=== PATIENT | female | born 1940 | race Caucasian/White ===

== ENCOUNTER → 2016-09-07 | Outpatient (CLI) | payer MEDICARE ==
[~2016-09-07] MED LIST: AMLO5TAB4 PO; ASP81TEC PO; CEFU500T5 PO; CLOP75TA PO; CLOP75TA28 PO; DICY20TA33 PO; GLIP10TA13 PO; LISI1TAB10 PO; LOSA50TA6 PO; LOVA10TA PO; LOVA20TA2 PO; LOVA40TA2; LOVA40TA2 PO; MAGN400C PO; MAGNESIUM W/ZINC PO; MELA10TA7 PO; METF-380 PO; METO-272 PO; MPR22T; MTF500T PO; MULT-974 PO; OMEG-12 PO; OXYB5TAB PO; OXYB5TAB9 PO; OXYC-12 PO; PNT40TEC PO; SERT50TA9 PO; SOLI5TAB4 PO; TRAM-42 PO
--- NOTE | 2016-09-07 12:01 | Diagnostic Imaging Report ---
PROCEDURE: CT abdomen without contrast. TECHNIQUE: Multiple contiguous axial images were obtained through the abdomen without the use of intravenous contrast. INDICATION: Upper abdominal pain. FINDINGS: The lung bases are clear. The distal esophagus is slightly dilated with mucosal wall thickening, may relate to esophagitis. There is a gastric band seen at the gastroesophageal junction. There is prominent distention of the distal stomach with ingested material without evidence of obstruction. The visualized portions of the small and large bowel loops and the appendix within the abdomen demonstrate no abnormal dilatation. Slightly prominent amount of luminal fluid, however, is seen in the jejunum. In the appropriate clinical setting, this may correlate with the enteritis. The kidneys demonstrate no hydronephrosis. There is a low-attenuation lesion in the mid right kidney measuring 1.4 cm, likely representing a cyst. Prominent atherosclerotic calcification of the abdominal aorta. No para-aortic significantly enlarged lymph node is noted. No significant free fluid or fluid collection in the abdomen is seen. The liver, the spleen, and adrenal glands appear unremarkable. The gallbladder is not seen, presumably surgically removed. The CBD is slightly dilated at 1.6 cm in caliber with no significant intrahepatic biliary dilatation identified. If the patient has the clinical signs of obstructive cholestasis, MRCP evaluation could be helpful. The pancreas appear unremarkable for an unenhanced exam. There is a periumbilical defect containing ventral hernia with the defect size about 2 cm in transverse dimension and 1 cm craniocaudally. The osseous structures demonstrate degenerative changes. IMPRESSION: 1. Thickening in the distal esophagus may relate to esophagitis. Correlate clinically and with endoscopy if needed. 2. Slightly prominent amount of luminal fluid in the proximal small bowel without dilatation or obstruction. Consider possibility of enteritis. 3. Periumbilical ventral hernia containing omental fat with abdominal wall defect measuring 2 x 1 cm. 4. Mild dilatation of the CBD. If the patient has clinical evidence of cholestasis, this can be further evaluated with MRCP. Dictated by: Dictated on workstation # [id number]
== END ==
LOC: RAD 10:51
PROVIDERS: ATTEND Nurse Practitioner Community Health
DX: K42.9 Umbilical hernia without obstruction or gangrene (principal); K83.8 Other specified diseases of biliary tract
CPT/HCPCS: 74150

== ENCOUNTER → 2018-03-21 | Outpatient (CLI) | payer MEDICARE ==
[~2018-03-21] MED LIST changes: -METO-272 PO; +METO-370 PO
[2018-03-21 15:37] LABS: ALBUMIN 3.9 GM/DL (3.2-4.5); BILIRUBIN,TOTAL 0.3 MG/DL (0.1-1.0); CALCIUM 9.4 MG/DL (8.5-10.1); CREATININE SERUM 1.03 MG/DL (0.60-1.30); POTASSIUM 4.4 MMOL/L (3.6-5.0); TOTAL PROTEIN 6.7 GM/DL (6.4-8.2)
== END ==
LOC: LAB 15:06
PROVIDERS: ATTEND Internal Medicine Cardiovascular Disease
DX: I25.10 Atherosclerotic heart disease of native coronary artery without angina pectoris (principal); I10 Essential (primary) hypertension; E78.2 Mixed hyperlipidemia; E11.9 Type 2 diabetes mellitus without complications; I73.9 Peripheral vascular disease, unspecified; I49.5 Sick sinus syndrome
CPT/HCPCS: 36415; 80053; 80061

== ENCOUNTER → 2018-10-13 | Outpatient (CLI) | payer MEDICARE, MEDICAID | LOC: CARD 12:47 | PROVIDERS: ATTEND Physician Assistant | DX: I25.10 Atherosclerotic heart disease of native coronary artery without angina pectoris (principal); I10 Essential (primary) hypertension; I34.0 Nonrheumatic mitral (valve) insufficiency; E78.2 Mixed hyperlipidemia; I73.9 Peripheral vascular disease, unspecified; I49.5 Sick sinus syndrome; I07.1 Rheumatic tricuspid insufficiency; Z84.1 Family history of disorders of kidney and ureter | CPT/HCPCS: 93306 ==

== ENCOUNTER → 2018-10-15 | Outpatient (CLI) | payer MEDICARE, MEDICAID ==
[~2018-10-15] MED LIST changes: +REGADENOSON 0.4 MG/5 ML SYR (LEXISCAN) IV ONE
[2018-10-15] MEDS: CATHETER FLUSH 10 ML SYR IV PRN ×2 (07:32→08:53)
[2018-10-15 08:51] VITALS: BP 198/86
--- NOTE | 2018-10-15 14:46 | STRESS TEST ---
DATE OF SERVICE: 10/15/2018 LEXISCAN MYOVIEW STRESS TEST REPORT REFERRING PHYSICIAN: Stephanie Brian. Baseline heart rate is 63. Baseline blood pressure 198/86. Baseline EKG is sinus rhythm with no ischemic changes. In summary, the patient was injected with 10.48 mCi of technetium-99 Myoview and the resting images were obtained. Then, the patient received 0.4 mg of Lexiscan followed by 28.7 mCi of technetium-99 Myoview. Throughout the test, there were no EKG changes. The resting and stressed images were reviewed and compared in the short axis, horizontal long axis, and vertical long axis views. Review of the images showed breast attenuation affecting the quality of the images. There is no significant ischemia was noted. SSS is 4, SDS is 4, TID value 1.09. On the gated images, the left ventricle appeared to be normal size with normal contractility. Calculated ejection fraction 57%. CONCLUSION: 1. The patient tolerated Lexiscan well. 2. No ischemia or infarction on SPECT images. 3. Normal left ventricular size with normal contractility. Calculated ejection fraction 57%. Job ID: [id number] DocumentID: [id number] Dictated Date: 10/15/2018 13:55:52 Clinical Coder Date: 10/15/2018 14:45:45 Dictated By: JOEL BROOKS MD
== END ==
LOC: CARD 07:11
PROVIDERS: ATTEND Physician Assistant
DX: I25.10 Atherosclerotic heart disease of native coronary artery without angina pectoris (principal); I10 Essential (primary) hypertension; I34.0 Nonrheumatic mitral (valve) insufficiency; E78.2 Mixed hyperlipidemia; I73.9 Peripheral vascular disease, unspecified; I49.5 Sick sinus syndrome; Z84.1 Family history of disorders of kidney and ureter
CPT/HCPCS: 78452; 93017

== ENCOUNTER → 2019-10-09 | Outpatient (CLI) | payer MEDICARE, MEDICAID ==
[~2019-10-09] MED LIST changes: -METO-370 PO; +METO50TA7 PO; -REGADENOSON 0.4 MG/5 ML SYR (LEXISCAN) IV ONE
--- NOTE | 2019-10-09 12:50 | Diagnostic Imaging Report ---
INDICATION: Routine screening. Comparison is made prior mammogram from 12/31/2012 and 01/06/2010. 2-D and 3-D bilateral screening mammography was performed with CAD. Scattered fibroglandular densities are identified bilaterally. Scattered benign calcifications are noted. No mass or malignant-appearing microcalcifications are seen. Pacemaker battery pack left axilla is noted. IMPRESSION: BI-RADS Category 2 No mammographic features suspicious for malignancy are identified. ACR BI-RADS Category 2: Benign findings. Result letter will be mailed to the patient. Note: At least 10% of breast cancer is not imaged by mammography. Dictated by: Dictated on workstation # [id number]
== END ==
LOC: RAD 10:32
PROVIDERS: ATTEND Nurse Practitioner Community Health
DX: Z12.31 Encounter for screening mammogram for malignant neoplasm of breast (principal)
CPT/HCPCS: 77063; 77067

== ENCOUNTER → 2021-08-18 | Outpatient (CLI) | payer MEDICARE, MEDICAID ==
[~2021-08-18] MED LIST changes: +ATOR40TA70 PO; +CEFU500T63 PO; +CLOP75TA69 PO; +FAMO20TA3 PO; +SERT-414 PO
== END ==
LOC: CARD 11:43
PROVIDERS: ATTEND Physician Assistant
DX: I08.3 Combined rheumatic disorders of mitral, aortic and tricuspid valves (principal); I11.9 Hypertensive heart disease without heart failure; I25.10 Atherosclerotic heart disease of native coronary artery without angina pectoris
CPT/HCPCS: 93306

== ENCOUNTER 2021-08-23 14:00 | Day surgery (SDC) | payer MEDICARE, MEDICAID ==
[2021-08-23] VITALS (8 sets, daily range): BP systolic 130–148; BP diastolic 54–73
[~2021-08-23] VITALS: Ht 165.1 cm; Wt 95.4 kg
--- NOTE | 2021-08-23 12:27 | Diagnostic Imaging Report ---
INDICATION: Pacemaker revision COMPARISON: 01/25/2016 FINDINGS: Single view the chest demonstrates slight cardiac enlargement. The pacemaker and leads appear to be in good position. There is no pneumothorax. IMPRESSION: No post procedure pneumothorax. Dictated by: Dictated on workstation # [id number]
[2021-08-23 12:33] LABS: BILIRUBIN,URINE NEGATIVE (NEGATIVE); CLARITY,URINE CLEAR; COLOR,URINE YELLOW; GLUCOSE, URINE (UA) NEGATIVE (NEGATIVE); KETONES,URINE NEGATIVE (NEGATIVE); LEUKOCYTE ESTERASE ,URINE 2+ (NEGATIVE); NITRITE,URINE POSITIVE (NEGATIVE); PROTEIN,URINE NEGATIVE (NEGATIVE)
[2021-08-23 12:38] LABS: HEMATOCRIT 39 % (35-52); HEMOGLOBIN 11.9 g/dL (11.5-16.0); MEAN CORPUSCULAR HEMOGLOBIN 32 pg (25-34); MEAN CORPUSCULAR HGB CONC 31 g/dL (32-36); MEAN CORPUSCULAR VOLUME 104 fL (80-99); MEAN PLATELET VOLUME 11.3 fL (9.0-12.2); PLATELET COUNT 194 10^3/uL (130-400); WHITE BLOOD COUNT 7.7 10^3/uL (4.3-11.0)
[2021-08-23 12:40] LABS: BACTERIA,URINE LARGE /HPF; RBC,URINE RARE /HPF
[2021-08-23 12:44] LABS: INR 1.1 (0.8-1.4); PROTHROMBIN TIME PATIENT 14.2 SEC (12.2-14.7)
[2021-08-23 12:51] LABS: ALBUMIN 3.6 GM/DL (3.2-4.5); BILIRUBIN,TOTAL 0.6 MG/DL (0.1-1.0); CALCIUM 8.9 MG/DL (8.5-10.1); CREATININE SERUM 1.1 MG/DL (0.60-1.30); POTASSIUM 4.9 MMOL/L (3.6-5.0); TOTAL PROTEIN 6.3 GM/DL (6.4-8.2)
[~2021-08-23 14:00] MED LIST changes: -CEFU500T63 PO; +HEParin (CATH LAB) 1,000 ML IV ONE; +LIDOCAINE 1% INJ 20 ML VIAL ONE; +MIDAZOLAM 5 MG/5 ML (VERSED) VIAL ONE; +NS (IVPB) 50 ML ONE; +NS IV 1000 ML 1,000 ML IV ONE; +NS IV 1000 ML 1,000 ML ONE; +ceFAZolin INJECTION 1,000 MG VIAL IV ONE; +fentaNYL INJ 100 MCG/2 ML AMP ONE
[2021-08-23] MEDS ORDERED: CEFU500T63 PO (14:19)
--- NOTE | 2021-08-23 14:20 | Discharge Inst-Post CATH ---
Discharge Inst-CATH/EP Problems Reviewed?: Yes Post Cardiac Cath/EP D/C Inst Follow Up/Plan Appointment with Dr. Mauro's office in 1 week <b>CARDIAC CATH/EP PROCEDURE DISCHARGE INSTRUCTIONS</b> ACTIVITY * Go Home directly and rest. * Limit activity of the leg (or wrist if it was used) for 7 days including aerobics, swimming, jogging, bicycling, etc. * Restrict stair-climbing for 7 days if possible, if not, climb up with your non-cath leg, then bring together on the same step. * Avoid lifting, pushing, pulling or excessive movement of the affected extremity for 7 days. * Customary sexual activity may be resumed after 2 days-use caution not to use a position that strains or causes pain to the affected extremity. * No driving for 24 hours. * NO SMOKING. * Avoid straining for bowel movements for 7 days. * Gentle walking on level ground is allowed. * Returning to work will depend on the type of procedure and the results. Your doctor will discuss this with you. CALL YOUR DOCTOR FOR ANY OF THE FOLLOWING: *If bleeding from the puncture site occurs- Apply gentle pressure to site with clean cloth and call your doctor or EMS. * If a knot or lump forms under the skin, increases in size, or causes pain. * If bruising appears to be worsening or moving further down your leg instead of disappearing. * Temperature above 101 F. CARE OF YOUR GROIN INCISION; * Bruising or purple discoloration of the skin near the puncture site is common. * You may shower only, no bathtub bathing for 5 days. Be careful to avoid slipping as your leg may feel stiff. * If a closure device was used on your femoral artery, please see the attached guide regarding care of the device and your leg. * Leave dressing on FOR 24 hours. CARE OF YOUR WRIST INCISION; * Bruising or purple discoloration of the skin near the puncture site is common. * You may shower. * DO NOT submerge wrist. * Leave dressing on FOR 24 hours. JOEL MAURO MD August 23, 2021 14:20
--- NOTE | 2021-08-23 14:23 | Packmaker Change ---
Pacemaker Change Physician (s)/Sign Maintenance (s) Physician JOEL BROOKS MD Pre-Procedure Diagnosis Pre-Procedure Diagnosis: Pacemaker battery depletion Post-Procedure Note Procedure Start Date: August 23, 2021 Name of Procedure: Dual-chamber pacemaker generator change Findings/Procedure Note 81-year-old lady with history of dual-chamber pacemaker. Scheduled for pacemaker generator change after reaching [place]. After explaining the procedure to the patient, all pros and cons were explained, patient was placed on the cardiac catheterization laboratory, conscious sedation achieved. Local anesthesia applied then skin incision was made. The old generator was exposed and removed. A new pacemaker generator Medtronic device was attached to the leads. Good sensing and capture activity. No complication noted. RIOS XT MRI [id number] Conclusion Successful dual-chamber pacemaker generator replacement with no complication Anesthesia Type: Conscious Sedation Estimated blood loss (mL): 5 ml Contrast Amount: 0 ml Post-Procedure Diagnosis Post-operative diagnosis: Complete heart block Cardiac pacemaker Hypertension Hyperlipidemia JOEL BROOKS MD August 23, 2021 14:23
--- NOTE | 2021-08-23 14:28 | Conscious Sedation/ASA ---
Conscious Sedation Pre-Proced Time 14:28 ASA Score 3 For ASA 3 and 4: Consider anesthesia and medical clearance. Also, for patients with a history of failed moderate sedation consider anesthesia. Airway Lungs Heart ASA score ASA 1: a normal healthy patient ASA 2: a patient with a mild systemic disease (mid diabetes, controlled hypertension, obesity x ASA 3: a patient with a severe systemic disease that limits activity (angina, COPD, prior Myocardial infarction) ASA 4: a patient with an incapacitating disease that is a constant threat to life (CHF, renal failure) ASA 5: a moribund patient not expected to survive 24 hrs. (ruptured aneurysm) ASA 6: a declared brain- patient whose organs are being harvested. For emergent operations, add the letter E after the classification Mallampati Classification Grade 3 Sedation Plan Analgesia, Amnesia, Plan communicated to team members, Discussed options with patient/fam, Discussed risks with patient/fam The patient is an appropriate candidate to undergo the planned procedure, sedation, and anesthesia. The patient immediately re-assessed prior to indication. JOEL BROOKS MD August 23, 2021 14:28
[2021-08-23] MEDS ORDERED: PATIENT MAY USE OWN MEDS, ALL PO SCH (14:30)
[2021-08-23] MEDS ORDERED: NS IV 1000 ML 1,000 ML IV SCH (14:30)
--- NOTE | 2021-08-23 15:55 | Diagnostic Imaging Report ---
Indication: Arrhythmia, pacemaker placement Portable chest 3:14 PM There is a dual-chamber pacemaker. Heart size and pulmonary vascularity are normal. Lungs are clear. There are no effusions or pneumothoraces. IMPRESSION: No acute abnormalities in the chest Dictated by: Dictated on workstation # [id number]
== END 2021-08-23 17:22 | disposition home or self-care (01) ==
LOC: CATH 14:00 → SDC 14:45 → CATH 17:22
PROVIDERS: ATTEND Internal Medicine Cardiovascular Disease
DX: Z45.010 Encounter for checking and testing of cardiac pacemaker pulse generator [battery] (principal); I44.2 Atrioventricular block, complete; I10 Essential (primary) hypertension; I25.10 Atherosclerotic heart disease of native coronary artery without angina pectoris; I73.9 Peripheral vascular disease, unspecified; I49.5 Sick sinus syndrome; I65.23 Occlusion and stenosis of bilateral carotid arteries; R42 Dizziness and giddiness; E78.2 Mixed hyperlipidemia; E11.9 Type 2 diabetes mellitus without complications; E66.9 Obesity, unspecified; Z68.32 Body mass index [BMI] 32.0-32.9, adult; Z79.899 Other long term (current) drug therapy; Z68.35 Body mass index [BMI] 35.0-35.9, adult
CPT/HCPCS: 33228; 71045; 80053; 80061; 81000; 85027; 85610; 85730; 87077; 87081; 87088; 87186; 93005; C1785; 36415

== ENCOUNTER → 2021-09-13 | Outpatient (CLI) | payer MEDICARE, MEDICAID ==
[~2021-09-13] MED LIST changes: +CATHETER FLUSH 10 ML SYR IVP PRN; +CEFU500T63 PO; -HEParin (CATH LAB) 1,000 ML IV ONE; -LIDOCAINE 1% INJ 20 ML VIAL ONE; -MIDAZOLAM 5 MG/5 ML (VERSED) VIAL ONE; -NS (IVPB) 50 ML ONE; -NS IV 1000 ML 1,000 ML IV ONE; -NS IV 1000 ML 1,000 ML ONE; +REGADENOSON 0.4 MG/5 ML SYR (LEXISCAN) IV ONE; -ceFAZolin INJECTION 1,000 MG VIAL IV ONE; -fentaNYL INJ 100 MCG/2 ML AMP ONE
[2021-09-13 13:41] VITALS: BP 149/74
--- NOTE | 2021-09-13 16:19 | Cardiology Stress Test Report ---
Stress Test Report Date of Procedure/Referring: Date of Procedure: September 13, 2021 [facility] Admitting Physician Admitting Physician: Attending Physician: Kenia Mendoza Indications: CAD Baseline Heart Rate: 64 Baseline Blood Pressure: Blood Pressure Systolic: 149 Blood Pressure Diastolic: 74 Baseline Vitals Vital Signs Date Time Temp Pulse Resp B/P (MAP) Pulse Ox O2 Delivery O2 Flow Rate FiO2 09/13/21 13:41 64 149/74 (99) 99 Baseline EKG: Baseline EKG: LBBB Summary After explaining the procedure to the patient, she signed a consent and then brought to the stress nuclear laboratory. Patient received 0.4 mg Lexiscan for stress test, ECG, heart rate and blood pressure were monitored continuously. Resting and stress dose of radio tracer were injected, imaging was acquired and reviewed in short axis, horizontal long axis and vertical long axis views. TID: 1.07 SSS: 5 SDS: 4 EF: 49 1. Patient tolerated Lexiscan well 2. Baseline left bundle branch block persisted during test 3. Reversible ischemia involving the mid to apical inferior wall and true apex 4. Normal left ventricular size with hypokinesia at the apex and inferoapical segment, ejection fraction 49% Copy Copies To 1: [facility]/ JOEL BROOKS MD September 13, 2021 16:19
== END ==
LOC: CARD 12:15
PROVIDERS: ATTEND Physician Assistant
DX: I25.10 Atherosclerotic heart disease of native coronary artery without angina pectoris (principal)
CPT/HCPCS: 78452; 93017; A9502

== ENCOUNTER 2021-09-22 06:59 | Day surgery (SDC) | payer MEDICARE, MEDICAID ==
[~2021-09-22] VITALS: Ht 165 cm; Wt 94.8 kg
[2021-09-22] VITALS (7 sets, daily range): BP systolic 122–153; BP diastolic 49–72
[~2021-09-22 06:59] MED LIST changes: -CATHETER FLUSH 10 ML SYR IVP PRN; -REGADENOSON 0.4 MG/5 ML SYR (LEXISCAN) IV ONE
[2021-09-22] MEDS ORDERED: LIDOCAINE 1% INJ 20 ML VIAL ONE (08:01)
[2021-09-22] MEDS ORDERED: HEParin (CATH LAB) 1,000 ML IV ONE (08:01)
--- NOTE | 2021-09-22 08:51 | Diagnostic Imaging Report ---
INDICATION: Preop for coronary catheterization Frontal chest obtained at 0828 a.m. and compared to 08/23/2021. There is mild cardiomegaly with central vascular prominence. There is no amy edema or consolidation or pleural fluid. There is no pneumothorax. Dual-lead pacemaker is unchanged compared to the prior study. IMPRESSION: Mild cardiomegaly and central vascular prominence, without amy edema or consolidation or pleural fluid. Dictated by: Dictated on workstation # [id number]
[2021-09-22 08:52] LABS: BILIRUBIN,URINE NEGATIVE (NEGATIVE); CLARITY,URINE CLEAR; COLOR,URINE YELLOW; GLUCOSE, URINE (UA) NEGATIVE (NEGATIVE); KETONES,URINE NEGATIVE (NEGATIVE); LEUKOCYTE ESTERASE ,URINE 1+ (NEGATIVE); NITRITE,URINE NEGATIVE (NEGATIVE); PH,URINE 7.5 (5-9); PROTEIN,URINE NEGATIVE (NEGATIVE)
[2021-09-22 08:53] LABS: BASOPHILS % (AUTO) 0 % (0-10); EOSINOPHILS # (AUTO) 0.2 10^3/uL (0.0-0.3); EOSINOPHILS % (AUTO) 3 % (0-10); HEMATOCRIT 38 % (35-52); HEMOGLOBIN 11.8 g/dL (11.5-16.0); LYMPHOCYTES # (AUTO) 1.8 10^3/uL (1.0-4.0); LYMPHOCYTES % (AUTO) 23 % (12-44); MEAN CORPUSCULAR HEMOGLOBIN 32 pg (25-34); MEAN CORPUSCULAR HGB CONC 31 g/dL (32-36); MEAN CORPUSCULAR VOLUME 103 fL (80-99); MEAN PLATELET VOLUME 11.1 fL (9.0-12.2); MONOCYTES # (AUTO) 0.8 10^3/uL (0.0-1.0); MONOCYTES % (AUTO) 11 % (0-12); NEUTROPHILS % (AUTO) 63 % (42-75); PLATELET COUNT 146 10^3/uL (130-400); WHITE BLOOD COUNT 7.8 10^3/uL (4.3-11.0)
[2021-09-22] MEDS: NS IV 1000 ML 1,000 ML IV SCH ×2 (09:01→18:00)
[2021-09-22 09:10] LABS: BACTERIA,URINE MODERATE /HPF; RBC,URINE RARE /HPF
[2021-09-22 09:12] LABS: PROTHROMBIN TIME PATIENT 13.3 SEC (12.2-14.7)
[2021-09-22 09:16] LABS: ALBUMIN 3.7 GM/DL (3.2-4.5); BILIRUBIN,TOTAL 0.4 MG/DL (0.1-1.0); CALCIUM 9.1 MG/DL (8.5-10.1); CREATININE SERUM 1.23 MG/DL (0.60-1.30); POTASSIUM 5.3 MMOL/L (3.6-5.0); TOTAL PROTEIN 6.4 GM/DL (6.4-8.2)
[2021-09-22] MEDS ORDERED: VERAPAMIL 5 MG/2 ML (CALAN) VIAL IV ONE (09:41)
[2021-09-22] MEDS ORDERED: NITRO DRIP 25000 MCG/D5W 250 ML IV ONE (09:42)
[2021-09-22] MEDS ORDERED: MIDAZOLAM 5 MG/5 ML (VERSED) VIAL ONE (09:42)
[2021-09-22] MEDS ORDERED: fentaNYL INJ 100 MCG/2 ML AMP ONE (09:42)
[2021-09-22] MEDS ORDERED: HEParin 1000 UNIT/ML (10ML VIAL) FOR BOLUS ONE (09:42)
--- NOTE | 2021-09-22 09:42 | Conscious Sedation/ASA ---
Conscious Sedation Pre-Proced Time 09:42 ASA Score 3 For ASA 3 and 4: Consider anesthesia and medical clearance. Also, for patients with a history of failed moderate sedation consider anesthesia. Airway Lungs Heart ASA score ASA 1: a normal healthy patient ASA 2: a patient with a mild systemic disease (mid diabetes, controlled hypertension, obesity x ASA 3: a patient with a severe systemic disease that limits activity (angina, COPD, prior Myocardial infarction) ASA 4: a patient with an incapacitating disease that is a constant threat to life (CHF, renal failure) ASA 5: a moribund patient not expected to survive 24 hrs. (ruptured aneurysm) ASA 6: a declared brain- patient whose organs are being harvested. For emergent operations, add the letter E after the classification Mallampati Classification Grade 3 Sedation Plan Analgesia, Amnesia, Plan communicated to team members, Discussed options with patient/fam, Discussed risks with patient/fam The patient is an appropriate candidate to undergo the planned procedure, sedation, and anesthesia. The patient immediately re-assessed prior to indication. JOEL BROOKS MD Sep 22, 2021 09:42
--- NOTE | 2021-09-22 09:51 | Cardioversion ---
JOEL BROOKS MD Sep 22, 2021 09:51
[2021-09-22] MEDS ORDERED: AMIODARONE INJECTION 450 MG in D5W IV SOLUTION (EXCEL) 250 ML IV SCH (10:00)
[2021-09-22] MEDS ORDERED: AMIODARONE FOR BOLUS 150 MG in NS (IVPB) 100 ML IV ONE (10:00)
--- NOTE | 2021-09-22 10:27 | Discharge Inst-Post CATH ---
Discharge Inst-CATH/EP Problems Reviewed?: Yes Post Cardiac Cath/EP D/C Inst Follow Up/Plan Appointment with Dr. Mauro's office in 2 to 4 weeks <b>CARDIAC CATH/EP PROCEDURE DISCHARGE INSTRUCTIONS</b> ACTIVITY * Go Home directly and rest. * Limit activity of the leg (or wrist if it was used) for 7 days including aer obics, swimming, jogging, bicycling, etc. * Restrict stair-climbing for 7 days if possible, if not, climb up with your non-cath leg, then bring together on the same step. * Avoid lifting, pushing, pulling or excessive movement of the affected extremi ty for 7 days. * Customary sexual activity may be resumed after 2 days-use caution not to use a position that strains or causes pain to the affected extremity. * No driving for 24 hours. * NO SMOKING. * Avoid straining for bowel movements for 7 days. * Gentle walking on level ground is allowed. * Returning to work will depend on the type of procedure and the results. Your doctor will discuss this with you. CALL YOUR DOCTOR FOR ANY OF THE FOLLOWING: *If bleeding from the puncture site occurs- Apply gentle pressure to site with clean cloth and call your doctor or EMS. * If a knot or lump forms under the skin, increases in size, or causes pain. * If bruising appears to be worsening or moving further down your leg instead of disappearing. * Temperature above 101 F. CARE OF YOUR GROIN INCISION; * Bruising or purple discoloration of the skin near the puncture site is common. * You may shower only, no bathtub bathing for 5 days. Be careful to avoid slipping as your leg may feel stiff. * If a closure device was used on your femoral artery, please see the attached guide regarding care of the device and your leg. * Leave dressing on FOR 24 hours. CARE OF YOUR WRIST INCISION; * Bruising or purple discoloration of the skin near the puncture site is common. * You may shower. * DO NOT submerge wrist. * Leave dressing on FOR 24 hours. JOEL MAURO MD Sep 22, 2021 10:27
[2021-09-22] MEDS ORDERED: NS IV 1000 ML 1,000 ML IV SCH (10:30)
--- NOTE | 2021-09-22 10:30 | Cardiac Cath Report ---
Cardiac Cath Report Physician (s)/Production Machine Shop Supervisor (s) Physician JOEL BROOKS MD Pre-Procedure Diagnosis Pre-Procedure Diagnosis: Coronary artery disease Post-Procedure Note Procedure Start Date: Sep 22, 2021 Name of Procedure: Left heart catheterization Findings/Procedure Note PROCEDURE NOTE: 81-year-old lady with history of coronary artery disease, multiple stents in the right coronary artery, had an abnormal stress test with inferior wall ischemia, scheduled for cardiac catheterization possible PTCA. After explaining the procedure to the patient, all pros and cons were explained, all questions were answered. The patient signed the consent and then she was placed on the cardiac catheterization laboratory. Groin was prepped SL fashion local anesthesia was used. Sheath placed in the right radial artery, Eldred catheter was advanced to the left ventricular cavity, pressure was measured, pullback LV to aorta was done, engaged the right and left coronary system, multiple views were obtained. At the end of the procedure the sheath was removed. Vascular band was used FINDINGS: Hemodynamics LV 102/18, end-diastolic pressure of 18 Aorta 112/59 mean of 80 ANATOMY: Left Main is free of obstructive disease Left Anterior Descending is moderate in size with slightly tortuous artery, 40 to 50% stenosis at the mid LAD nonobstructive disease Left Circumflex is moderate in size with mild disease nonobstructive disease Right Coronary Artery has multiple stents in the proximal and mid portion, patent stent, beyond the stent there is an area of 40 to 50% stenosis nonobstructive disease, distally small vessel disease was noted LV Gram was not done, pressure was measured CONCLUSION: 1. Patent stent in the proximal and mid right coronary artery with 40 to 50% stenosis at the mid right coronary artery beyond the stent, small vessel disease distally. 2. Slightly tortuous LAD system with 40 to 50% stenosis in the mid LAD nonobstructive disease 3. Mild disease in the circumflex artery 4. Normal left ventricular end-diastolic pressure DISCUSSION AND RECOMMENDATION: Abnormal stress test is probably due to small vessel disease, medical therapy is recommended no intervention is warranted Anesthesia Type: Conscious Sedation Estimated blood loss (mL): 10 ml Contrast Amount: 29 ml Total Radiation Dose: 333 mGy Post-Procedure Diagnosis Post-operative diagnosis: Chest pain Coronary artery disease Hypertension Hyperlipidemia JOEL BROOKS MD Sep 22, 2021 10:30
== END 2021-09-22 18:31 | disposition home or self-care (01) ==
LOC: CATH 06:59 → CSD 10:38 → CATH 18:31
PROVIDERS: ATTEND Internal Medicine Cardiovascular Disease
DX: I25.10 Atherosclerotic heart disease of native coronary artery without angina pectoris (principal); I10 Essential (primary) hypertension; I73.9 Peripheral vascular disease, unspecified; I49.5 Sick sinus syndrome; I47.1 Supraventricular tachycardia; I65.23 Occlusion and stenosis of bilateral carotid arteries; I70.90 Unspecified atherosclerosis; E78.5 Hyperlipidemia, unspecified; E11.9 Type 2 diabetes mellitus without complications; E66.9 Obesity, unspecified; Z95.5 Presence of coronary angioplasty implant and graft; Z95.0 Presence of cardiac pacemaker; Z68.30 Body mass index [BMI] 30.0-30.9, adult; Z79.899 Other long term (current) drug therapy
CPT/HCPCS: 71045; 80053; 81000; 85025; 85610; 85730; 87077; 87081; 87088; 87186; 93005; 93458; C1894; 36415

== ENCOUNTER → 2021-12-26 | Outpatient (CLI) | payer MEDICARE, MEDICAID ==
[~2021-12-26] MED LIST changes: +MELA10TA20 PO; -MELA10TA7 PO
--- NOTE | 2021-12-26 14:12 | Diagnostic Imaging Report ---
INDICATION: Postmenopausal state COMPARISON: None available FINDINGS: AP Spine L1-L4: [BMD (g/cm2): 1.457] [T-Score: 2.1] [Z-Score: 3.0] [BMD Previous: na] [BMD % Change: na] LT Hip Neck: [BMD (g/cm2): 0.694] [T-Score: -2.5] [Z-Score: -0.9] LT Hip Total: [BMD (g/cm2):0.846] [T-Score:-1.3] [Z-Score: 0.1] [BMD Previous: na] [BMD % Change: na] RT Hip Neck: [BMD (g/cm2):0.691] [T-Score:-2.5] [Z-Score:-0.9] RT Hip Total: [BMD (g/cm2):0.863] [T-score:-1.2] [Z-Score:0.3] [BMD Previous:na] [BMD % Change:na] *Indicates significant change from prior examination based on 95% confidence level. World Health Organization criteria for BMD interpretation classify patients as Normal (T-score at or above -1.0), Osteopenic (T-score between -1.0 and -2.5) or Osteoporotic (T-score at or below -2.5). LIMITATIONS AND MODIFICATION: None. FRACTURE RISK (FRAX SCORE): The ten year probability of (%): Major Osteoporotic Fracture: [18.2] Hip Fracture: [6.4] IMPRESSION: 1. Osteoporosis. 2. Baseline examination. 3. See below National Osteoporosis Foundation guidelines on when to potentially initiate pharmacologic therapy. Based on the National Osteoporosis Foundation Guidelines, pharmacologic treatment should be initiated in any of the following, unless clinical conditions suggest otherwise: * Any patient with prior fragility fracture of the hip or vertebrae. A spine fracture indicates 5X risk for subsequent spine fracture and 2X risk for subsequent hip fracture. * Osteoporosis (T-score <-2.5). * Postmenopausal women and men age 50 and older with low bone mass/osteopenia (T-score between -1.0 and -2.5) by DXA and 10-year major osteoporotic fracture greater than 20% or a 10-year probability of hip fracture greater than 3%. These fracture risks are supplied above in the FRAX score, if applicable. * Clinician judgement and/or patient preferences may indicate treatment for people with 10-year fracture probabilities above or below these levels. Dictated by: Dictated on workstation # [id number]
== END ==
LOC: RAD 12:36
PROVIDERS: ATTEND Nurse Practitioner
DX: Z00.00 Encounter for general adult medical examination without abnormal findings (principal); M81.0 Age-related osteoporosis without current pathological fracture; E56.9 Vitamin deficiency, unspecified; N18.31 Chronic kidney disease, stage 3a; Z78.0 Asymptomatic menopausal state
CPT/HCPCS: 77080

== ENCOUNTER → 2022-01-25 | Outpatient (CLI) | payer MEDICARE, MEDICAID ==
--- NOTE | 2022-01-25 19:27 | Diagnostic Imaging Report ---
PROCEDURE: US Renal Bilateral. TECHNIQUE: Multiple real-time grayscale images were obtained over the kidneys in various projections bilaterally. INDICATION: Cystitis. COMPARISON: Exam correlated with an abdominal CT of 09/07/2016. FINDINGS: Right kidney is 8.5 cm, left 8.7 cm. Both showed some mild cortical thinning and a few cortical cysts. No hydronephrosis. The urinary bladder prevoid volume was 122 mL and there is a trace 1 mL postvoid residual. IMPRESSION: 1. Slightly small and cortically thinned kidneys with normal echotexture. Benign right renal cortical cysts noted. No hydronephrosis. 2. Bladder volume of 122 mL with no significant postvoid residual. Dictated by: Dictated on workstation # [id number]
== END ==
LOC: RAD 15:15
PROVIDERS: ATTEND Nurse Practitioner Family
DX: N30.00 Acute cystitis without hematuria (principal); N28.1 Cyst of kidney, acquired
CPT/HCPCS: 76770

== ENCOUNTER → 2022-06-18 | Outpatient (CLI) | payer MEDICARE, MEDICAID ==
[~2022-06-18] MED LIST changes: +CLOP-31 PO; -CLOP75TA69 PO
[2022-06-18 12:28] LABS: CREATININE SERUM 1.9 MG/DL (0.60-1.30)
== END ==
LOC: RAD 13:15
PROVIDERS: ATTEND Physician Assistant
DX: I73.9 Peripheral vascular disease, unspecified (principal)
CPT/HCPCS: 36415; 82565; 84520